=== PATIENT | female | born 1960 | race Caucasian/White ===

== ENCOUNTER 2017-09-18 19:07 | Observation (INO) | payer OTHER ==
[~2017-09-18] VITALS: Ht 154.9 cm; Wt 52.0 kg
[~2017-09-18 19:07] MED LIST: MULTTAB63; PERC5TAB12 PO; ZOFR4TAB3 SL
[2017-09-18 19:12] VITALS: BP 171/103; PULSE 111; RESP 16; TEMP 97.8; O2SAT 100
[2017-09-18] MEDS ORDERED: MULTTAB67 PO (19:12)
[2017-09-18] MEDS ORDERED: VENL75TA PO (19:12)
--- NOTE | 2017-09-18 19:48 | PD ---
HPI Chief Complaint: Chest Pain Time Seen by Provider: 19:38 Travel History International Travel<30 days: No Contact w/Intl Traveler<30days: No Traveled to known affect area: No History of Present Illness HPI 56-year-old female complaints of chest pain. Patient states that the chest pain started about 2 and half hours prior to arrival. Patient states that the chest pain is substernal heaviness pressure pain with radiation to left-sided neck. Patient states that she has nausea headache and shortness of breath with the chest pain. Patient was feeling her heart pounding. Patient denies any irregular heartbeat. Patient denies any diaphoresis. Patient denies history of CAD. Patient denies history hypertension, diabetes, hyperlipidemia. Patient is a non-smoker. Patient denies family history of heart disease. On a scale of 1-10 the pain is a 5. PFSH Past Medical History Depression: Yes Neurologic: Yes (CHRONIC ARM PAIN FROM DOG BITE) Influenza Vaccination: No ?: Not : 3 Para: 2 Miscarriage: 1 Past Surgical History Appendectomy: Yes Section: Yes Hysterectomy: Yes Social History Alcohol Use: Yes (SOCIAL) Tobacco Use: No Substance Use: No Allergies-Medications (Allergen,Severity, Reaction): Coded Allergies: Sulfa (Sulfonamide Antibiotics) (Unverified Allergy, Mild, N/V, 09/18/17) Reported Meds & Prescriptions Reported Meds & Active Scripts Active Reported Multiple Vitamin 1 Tab 1 Tab PO DAILY Effexor (Venlafaxine HCl) 75 Mg Tab 75 Mg PO Q12H Review of Systems General / Constitutional: No: Fever Eyes: No: Visual changes HENT: No: Headaches Cardiovascular: Positive: Chest Pain or Discomfort Respiratory: No: Shortness of Breath Gastrointestinal: No: Abdominal Pain Genitourinary: No: Dysuria Musculoskeletal: No: Pain Skin: No Rash Neurologic: No: Weakness Psychiatric: No: Depression Endocrine: No: Polydipsia Hematologic/Lymphatic: No: Easy Bruising Physical Exam Narrative GENERAL: Well-nourished, well-developed patient. SKIN: Focused skin assessment warm/dry. HEAD: Normocephalic. EYES: No scleral icterus. No injection or drainage. NECK: Supple, trachea midline. No JVD or lymphadenopathy. CARDIOVASCULAR: Regular rate and rhythm without murmurs, gallops, or rubs. RESPIRATORY: Breath sounds equal bilaterally. No accessory muscle use. GASTROINTESTINAL: Abdomen soft, non-tender, nondistended. MUSCULOSKELETAL: No cyanosis, or edema. BACK: Nontender without obvious deformity. No CVA tenderness. Neurologic exam normal. Data Data Last Documented VS Vital Signs Date Time Temp Pulse Resp B/P (MAP) Pulse Ox O2 Delivery O2 Flow Rate FiO2 09/18/17 19:12 97.8 111 16 171/103 (125) 100 Orders Orders Electrocardiogram (09/18/17 ) Electrocardiogram (09/18/17 19:43) Complete Blood Count With Diff (09/18/17 19:43) Comprehensive Metabolic Panel (09/18/17:43) Creatine Kinase (Cpk) (09/18/17:43) Troponin I (09/18/17:43) Prothrombin Time / Inr (Pt) (09/18/17 19:43) Act Partial Throm Time (Ptt) (09/18/17:43) Chest, Single Ap (09/18/17:43) Iv Access Insert/Monitor (09/18/17:43) Ecg Monitoring (09/18/17:43) Oximetry (09/18/17 19:43) Aspirin (Aspirin) (09/18/17 21:00) Potassium Chloride (Kcl) (09/18/17 21:00) Labs Laboratory Tests Test 09/18/17 19:57 White Blood Count 5.3 TH/MM3 Red Blood Count 4.47 MIL/MM3 Hemoglobin 14.1 GM/DL Hematocrit 40.6 % Mean Corpuscular Volume 90.8 FL Mean Corpuscular Hemoglobin 31.6 PG Mean Corpuscular Hemoglobin Concent 34.8 % Red Cell Distribution Width 13.7 % Platelet Count 296 TH/MM3 Mean Platelet Volume 6.9 FL Neutrophils (%) (Auto) 61.7 % Lymphocytes (%) (Auto) 28.3 % Monocytes (%) (Auto) 7.4 % Eosinophils (%) (Auto) 1.9 % Basophils (%) (Auto) 0.7 % Neutrophils # (Auto) 3.3 TH/MM3 Lymphocytes # (Auto) 1.5 TH/MM3 Monocytes # (Auto) 0.4 TH/MM3 Eosinophils # (Auto) 0.1 TH/MM3 Basophils # (Auto) 0.0 TH/MM3 CBC Comment DIFF FINAL Differential Comment Prothrombin Time 10.1 SEC Prothromb Time International Ratio 1.0 RATIO Activated Partial Thromboplast Time 24.0 SEC Blood Urea Nitrogen 11 MG/DL Creatinine 0.95 MG/DL Random Glucose 132 MG/DL Total Protein 7.7 GM/DL Albumin 4.1 GM/DL Calcium Level 9.7 MG/DL Alkaline Phosphatase 64 U/L Aspartate Amino Transf (AST/SGOT) 24 U/L Alanine Aminotransferase (ALT/SGPT) 22 U/L Total Bilirubin 0.3 MG/DL Sodium Level 140 MEQ/L Potassium Level 3.3 MEQ/L Chloride Level 105 MEQ/L Carbon Dioxide Level 25.2 MEQ/L Anion Gap 10 MEQ/L Estimat Glomerular Filtration Rate 61 ML/MIN Total Creatine Kinase 65 U/L Troponin I LESS THAN 0.02 NG/ML MDM Medical Decision Making Medical Screen Exam Complete: Yes Emergency Medical Condition: Yes Interpretation(s) EKG shows sinus rhythm nonspecific ST-T wave change. 2049 PM. CBC within normal limits. CMP within normal limits. Potassium 3.3. Cardiac enzymes are normal. Differential Diagnosis Differential diagnosis including angina, MN, PE, pneumothorax. Narrative Course 56-year-old female with chest pain. Aspirin 325 mg p.o. given. KCl 20 mEq p.o. given. Patient will be admitted to chest pain center. Diagnosis Primary Impression: Chest pain Qualified Codes: R07.9 - Chest pain, unspecified Additional Impression: Hypokalemia Admitting Information Admitting Physician Requests: Observation Rene Harris MD September 18, 2017 19:48
[2017-09-18 20:16] LABS: AUTOMATED NEUTROPHIL # 3.3 TH/MM3 (1.8-7.7); BASOPHIL % 0.7 % (0.0-2.0); EOSINOPHIL # 0.1 TH/MM3 (0-0.4); EOSINOPHIL % 1.9 % (0.0-4.0); HEMATOCRIT 40.6 % (35.0-46.0); HEMOGLOBIN 14.1 GM/DL (11.6-15.3); LYMPH % 28.3 % (9.0-44.0); LYMPHOCYTE # 1.5 TH/MM3 (1.0-4.8); MEAN CELL VOLUME 90.8 FL (80.0-100.0); MEAN CORPUSCULAR HEMOGLOBIN 31.6 PG (27.0-34.0); MEAN CORPUSCULAR HGB CONC 34.8 % (32.0-36.0); MEAN PLATELET VOLUME 6.9 FL (7.0-11.0); MONO % 7.4 % (0.0-8.0); MONOCYTE # 0.4 TH/MM3 (0-0.9); NEUT % 61.7 % (16.0-70.0); PLATELET COUNT 296 TH/MM3 (150-450); RED BLOOD COUNT 4.47 MIL/MM3 (4.00-5.30); RED CELL DISTRIBUTION WIDTH 13.7 % (11.6-17.2); WHITE BLOOD COUNT 5.3 TH/MM3 (4.0-11.0)
[2017-09-18 20:21] LABS: PROTHROMBIN TIME - PATIENT 10.1 SEC (9.8-11.6)
[2017-09-18 20:32] LABS: ALBUMIN 4.1 GM/DL (3.4-5.0); ALT (GPT) 22 U/L (10-53); AST (GOT) 24 U/L (15-37); BICARBONATE 25.2 MEQ/L (21.0-32.0); BLOOD UREA NITROGEN 11 MG/DL (7-18); CALCIUM 9.7 MG/DL (8.5-10.1); CHLORIDE 105 MEQ/L (98-107); CREATININE 0.95 MG/DL (0.50-1.00); GLOMERULAR FILTRATION RATE 61 ML/MIN (>89); GLUCOSE,RANDOM 132 MG/DL (74-106); SODIUM (NA) 140 MEQ/L (136-145)
[2017-09-18 20:35] LABS: ALKALINE PHOSPHATASE 64 U/L (45-117); TOTAL BILIRUBIN ADULT 0.3 MG/DL (0.2-1.0); TOTAL PROTEIN 7.7 GM/DL (6.4-8.2); TROPONIN I LESS THAN 0.02 NG/ML (0.02-0.05)
[2017-09-18 21:00] VITALS: BP 127/77; PULSE 96; RESP 18; O2SAT 97
[2017-09-18] MEDS ORDERED: POTASSIUM CHLORIDE 20 MEQ CONTROLLED RELEASE TAB PO ONE (21:00)
[2017-09-18] MEDS ORDERED: SODIUM CHLORIDE 0.9% FLUSH 10 ML FLUSH IV FLUSH PRN (21:00)
[2017-09-18] MEDS ORDERED: ONDANSETRON HCL 4 MG/2 ML VIAL IV PUSH PRN (21:00)
[2017-09-18] MEDS ORDERED: ASPIRIN 325 MG TAB PO ONE (21:00)
[2017-09-18] MEDS ORDERED: ACETAMINOPHEN 500 MG CPLT PO PRN (21:00)
--- NOTE | 2017-09-18 21:11 | RADRPT ---
EXAM DATE/TIME: 09/18/2017 19:56 [facility] COMPARISON: No previous studies available for comparison. INDICATIONS : Chest pain. MEDICAL HISTORY : Hypertension. Asthma. SURGICAL HISTORY : None. ENCOUNTER: Initial ACUITY: 1 day PAIN SCORE: 05/14 LOCATION: Left upper chest FINDINGS: A single view of the chest demonstrates the lungs to be symmetrically aerated without evidence of mas s, infiltrate or effusion. The cardiomediastinal contours are unremarkable. There is an old fracture deformity at the left posterior sixth rib. There is a levocurvature of the lower thoracic spine. CONCLUSION: No acute disease. Rosalino Klein MD on September 18, 2017 at 21:09 Board Certified Radiologist. This report was verified electronically.
[2017-09-18 21:27] VITALS: O2SAT 97
[2017-09-18] MEDS: SODIUM CHLORIDE 0.9% FLUSH 10 ML FLUSH IV FLUSH SCH (21:30)
[2017-09-18 21:39] VITALS: O2SAT 97
[2017-09-18 22:39] VITALS: BP 119/71; PULSE 81; RESP 16; TEMP 97.6; O2SAT 97
[2017-09-18 22:45] VITALS: PULSE 79
[2017-09-18 23:51] LABS: TROPONIN I LESS THAN 0.02 NG/ML (0.02-0.05)
[2017-09-19] VITALS: PULSE 74
[2017-09-19 02:37] LABS: TROPONIN I LESS THAN 0.02 NG/ML (0.02-0.05)
[2017-09-19 04:00] VITALS: BP 110/74; PULSE 68; PULSE 81; RESP 16; TEMP 97.9; O2SAT 97
[2017-09-19] MEDS ORDERED: NITROGLYCERIN 0.4 MG SL 25 TABS/BTL SL PRN (07:30)
[2017-09-19 08:00] VITALS: BP 116/70; PULSE 85; RESP 17; TEMP 98.1; O2SAT 93
[2017-09-19 08:06] VITALS: O2SAT 98
[2017-09-19] MEDS: SODIUM CHLORIDE 0.9% FLUSH 10 ML FLUSH IV FLUSH SCH (08:08)
--- NOTE | 2017-09-19 08:16 | HHI.HP ---
HPI Primary Care Physician Solo Her MD Chief Complaint Chest pain History of Present Illness 56 year old female without any significant past medical history presents to ER for further evaluation of nonexertional chest pain. Onset 5pm while getting her nails painted. Experienced "heart pounding" and "didn't feel well." Few minutes later developed left anterior chest pain. Characterized as pressure. Moderate in severity. Radiation to left side of neck. Associated symptoms of nausea, headache, dyspnea, and diaphoresis (described as intervals of hot and cold sweats). After leaving the nail salon, drove herself home and notified her . encouraged her to go to ER, however she refused but agreed to go to fire station near their home. Reports her heart rate 120s and bp 170/100s at fire station. Came to ER as directed by firemen. Duration of chest pain approx 2 hours. No known precipitating of relieving factors. Denies similar pain in the past. No current chest pain. Review of Systems General: No fatigue,weakness, fever, chills, or recent illness. Has been under general state of health. HEENT: No DELA CRUZ, no vision changes, no nasal congestion or drainage, no dysphasia CV: As stated above. No current chest pain or pressure. No further palpitations, dizziness improved. RESP: No SOB, cough, wheeze, or history of asthma GI: No nausea, vomiting, bowel changes, diarrhea, constipation, pain, distention , melena, or blood in the stool. : No dysuria, urgency, frequency EXT: No lower leg edema, no paraesthesias MS: No discomfort, injury, or change in ROM NEURO: No change in memory, difficulty with balance, LOC, motor/sensory deficits PSYCH: History of depression, no anxiety or suicidal ideation SKIN: No rashes, no concerning lesions Past Family Social History Allergies: Coded Allergies: Sulfa (Sulfonamide Antibiotics) (Unverified Allergy, Mild, N/V, 09/18/17) Past Medical History Depression Past Surgical History Appendectomy, hysterectomy Reported Medications Reported Meds & Active Scripts Active Reported Multiple Vitamin 1 Tab 1 Tab PO DAILY Effexor (Venlafaxine HCl) 75 Mg Tab 75 Mg PO Q12H Active Ordered Medications Current Medications Medications (Trade) Dose Ordered Sig/Ji Route Start Time Stop Time Status Last Admin (NS Flush) 2 ml UNSCH PRN IV FLUSH 5/17/18 21:00 (NS Flush) 2 ml BID IV FLUSH 09/18/17 21:00 09/19/17 08:08 (Tylenol) 500 mg Q4H PRN PO 09/18/17 21:00 (Zofran Inj) 4 mg Q6H PRN IV PUSH 09/18/17 21:00 (Nitrostat Sl) 0.4 mg Q5M PRN SL 09/19/17 07:30 (Aspirin) 325 mg DAILY PO 09/19/17 09:00 09/19/17 08:07 Family History Noncontributory for early onset cardiovascular disease. Social History No known diabetes, hypertension, hyperlipidemia, or coronary artery disease. Lifelong non-smoker. Denies any alcohol or illegal drug use. Endorses any active lifestyle, attending gym often until recent fracture of bilateral feet. Past cardiac testing None Physical Exam Vital Signs Vital Signs Date Time Temp Pulse Resp B/P (MAP) Pulse Ox O2 Delivery O2 Flow Rate FiO2 09/19/17 08:06 98 21 09/19/17 04:00 68 09/19/17 04:00 97.9 81 16 110/74 (86) 97 09/19/17 00:00 74 09/18/17 22:45 79 09/18/17 22:39 97.6 81 16 119/71 (87) 97 09/18/17 21:39 09/18/17 21:39 97 09/18/17 21:27 97 09/18/17 21:00 96 18 127/77 (94) 97 Room Air 09/18/17 19:12 97.8 111 16 171/103 (125) 100 Physical Exam GENERAL: Alert WN, WD, NAD, pleasant, female HEAD: NC, AT EYES: Sclera clear, conjunctiva without injection, pupils equal and round ENT: Mucous membranes pink and moist NECK: Supple, no masses, trachea midline CV: RRR, without murmur, rub, gallop, no JVD, S1-S2 no S3-S4. Chest wall nontender with palpation. RESP: Clear lungs throughout bilateral, no crackles, wheeze, rhonchi, symmetrical chest rise, nonlabored, able to speak in full sentences ABD: Soft, NT, ND, no masses, positive bowel tones EXT: Pulses +2x4, no dependent edema MS: Normal tone x4 extremities, no obvious deformities, full range of motion NEURO: CN II through CN XII grossly intact, motor strength 5/5 PSYCH: A+O x3, pleasant affect, appropriate speech, mood, insight and judgment SKIN: Normal turgor, normal texture, no lesions, no rashes, brisk cap refill, even hair distribution, heavily tattooed Laboratory Laboratory Tests Test 09/18/17 19:57 09/18/17 23:00 09/19/17 02:00 White Blood Count 5.3 Red Blood Count 4.47 Hemoglobin 14.1 Hematocrit 40.6 Mean Corpuscular Volume 90.8 Mean Corpuscular Hemoglobin 31.6 Mean Corpuscular Hemoglobin Concent 34.8 Red Cell Distribution Width 13.7 Platelet Count 296 Mean Platelet Volume 6.9 Neutrophils (%) (Auto) 61.7 Lymphocytes (%) (Auto) 28.3 Monocytes (%) (Auto) 7.4 Eosinophils (%) (Auto) 1.9 Basophils (%) (Auto) 0.7 Neutrophils # (Auto) 3.3 Lymphocytes # (Auto) 1.5 Monocytes # (Auto) 0.4 Eosinophils # (Auto) 0.1 Basophils # (Auto) 0.0 CBC Comment DIFF FINAL Differential Comment Prothrombin Time 10.1 Prothromb Time International Ratio 1.0 Activated Partial Thromboplast Time 24.0 Blood Urea Nitrogen 11 Creatinine 0.95 Random Glucose 132 Total Protein 7.7 Albumin 4.1 Calcium Level 9.7 Alkaline Phosphatase 64 Aspartate Amino Transf (AST/SGOT) 24 Alanine Aminotransferase (ALT/SGPT) 22 Total Bilirubin 0.3 Sodium Level 140 Potassium Level 3.3 Chloride Level 105 Carbon Dioxide Level 25.2 Anion Gap 10 Estimat Glomerular Filtration Rate 61 Total Creatine Kinase 65 61 54 Troponin I LESS THAN 0.02 LESS THAN 0.02 LESS THAN 0.02 Result Diagram: 09/18/17195609/18/171956 Imaging Last 48 hours Impressions Chest X-Ray 09/18/171942 Signed Impressions: Service Date/Time: September 19:56 - CONCLUSION: No acute disease. Rosalino Klein MD Course EKG NSR, normal axis, no st t segment changes Caprini VTE Risk Assessment Caprini VTE Risk Assessment: No/Low Risk (score <= 1) Caprini Risk Assessment Model Point Value = 1 Point Value = 2 Point Value = 3 Point Value = 5 Age 41-60 Minor surgery BMI > 25 kg/m2 Swollen legs Varicose veins or History of unexplained or recurrent spontaneous Oral contraceptives or hormone replacement Sepsis (< 1 month) Serious lung disease, including pneumonia (< 1 month) Abnormal pulmonary function Acute myocardial infarction Congestive heart failure (< 1 month) History of inflammatory bowel disease Medical patient at bed rest Age 61-74 Arthroscopic surgery Major open surgery (> 45 min) Laparoscopic surgery (> 45 min) Malignancy Confined to bed (> 72 hours) Immobilizing plaster cast Central venous access Age >= 75 History of VTE Family history of VTE Factor V Leiden Prothrombin [id number] Lupus anticoagulant Anticardiolipin antibodies Elevated serum homocysteine Heparin-induced thrombocytopenia Other congenital or acquired thrombophilia Stroke (< 1 month) Elective arthroplasty Hip, pelvis, or leg fracture Acute spinal cord injury (< 1 month) Prophylaxis Regimen Total Risk Factor Score Risk Level Prophylaxis Regimen 0-1 Low Early ambulation 2 Moderate Order ONE of the following: *Sequential Compression Device (SCD) *Heparin 5000 units SQ BID 3-4 Higher Order ONE of the following medications: *Heparin 5000 units SQ TID *Enoxaparin/Lovenox 40 mg SQ daily (WT < 150 kg, CrCl > 30 mL/min) *Enoxaparin/Lovenox 30 mg SQ daily (WT < 150 kg, CrCl > 10-29 mL/min) *Enoxaparin/Lovenox 30 mg SQ BID (WT < 150 kg, CrCl > 30 mL/min) AND/OR *Sequential Compression Device (SCD) 5 or more Highest Order ONE of the following medications: *Heparin 5000 units SQ TID (Preferred with Epidurals) *Enoxaparin/Lovenox 40 mg SQ daily (WT < 150 kg, CrCl > 30 mL/min) *Enoxaparin/Lovenox 30 mg SQ daily (WT < 150 kg, CrCl > 10-29 mL/min) *Enoxaparin/Lovenox 30 mg SQ BID (WT < 150 kg, CrCl > 30 mL/min) AND *Sequential Compression Device (SCD) Assessment and Plan Assessment and Plan #1 Chest pain-admitted to chest pain center. ACS ruled out with 3 sets of EKGs, cardiac enzymes, and monitored on telemetry overnight. Seen and evaluated by Dr. Vidal. Due to recent bilateral feet fractures, proceed with Lexiscan this morning. If Lexiscan unremarkable, plan to discharge home with follow up with PCP. Verbalized understanding and agreeable to plan of care. #2 History of depression-continue Shelby Gan September 19, 2017 08:16
[2017-09-19] MEDS ORDERED: ASPIRIN 325 MG TAB PO SCH (09:00)
[2017-09-19] MEDS ORDERED: REGADENOSON INJ 0.4 MG/5 ML SYR ONE (10:08)
[2017-09-19 12:00] VITALS: BP 113/71; PULSE 72; RESP 18; TEMP 96.8; O2SAT 98
--- NOTE | 2017-09-19 12:06 | RADRPT ---
EXAM DATE/TIME: 09/19/2017 09:30 [facility] COMPARISON: No previous studies available for comparison. INDICATIONS : Mid chest pain for one day. Angina. DOSE: 27.3 mCi Tc99m Myoview at stress. 8.7 mCi Tc99m Myoview at rest. 0.4 mg Lexiscan STRESS SYMPTOMS: None. EJECTION FRACTION: > 70% MEDICAL HISTORY : Asthma. SURGICAL HISTORY : Hysterectomy. section. Appendectomy. ENCOUNTER: Initial ACUITY: 1 day PAIN SCALE: 5/10 LOCATION: Midsternal chest TECHNIQUE: The patient underwent pharmacologic stress with infusion of prescribed dose. Continuous ECG tracing was monitored during stress. Gated SPECT imaging was performed after stress and conventional SPECT i maging was performed at rest. The examination was performed on a SPECT/CT scanner, both attenuation and non-corrected datasets were reviewed. FINDINGS: DISTRIBUTION: The maximum perfused segment at stress is in the inferior wall. PERFUSION STUDY: The pattern of perfusion at stress is within normal limits. GATED STUDY: There is intact wall motion and thickening without hypokinetic or dyskinetic segments. CONCLUSION: 1. No reversible perfusion defects to suggest ischemia 2. Normal ejection fraction. RISK CATEGORY: Low (<1% Annual Mortality Rate) Portillo Gray MD on September 19, 2017 at 12:03 Board Certified Radiologist. This report was verified electronically.
--- NOTE | 2017-09-19 12:26 | HHI.DCPOC ---
Discharge Care Plan Diagnosis: (1) Atypical chest pain (2) Hypokalemia Goals to Promote Your Health * To prevent worsening of your condition and complications * To maintain your health at the optimal level Directions to Meet Your Goals Take your medications as prescribed Follow your dietary instruction Follow activity as directed Keep your appointments as scheduled Take your immunizations and boosters as scheduled If your symptoms worsen call your PCP, if no PCP go to Urgent Care Center or Emergency Room Smoking is Dangerous to Your Health. Avoid second hand smoke Call the 24-hour hour crisis hotline for domestic abuse at [facility] Karimi September 19, 2017 12:26
--- NOTE | 2017-09-19 14:28 | TR ---
Date Performed: 09/19/2017 Time Performed: 10:09:28 DOCTOR: Yaa Vidal DRUG LIST: CLINICAL HISTORY: REASON FOR TEST: REASON FOR ENDING: OBSERVATION: CONCLUSION: Lexiscan stress test was performed under standard four minute protocol. Radionuclid e was injected one minute prior to ending the test. No electrocardiographic abormalities were present to suggest ischemia. Nuclear imaging and interpretation are pending. COMMENTS:
--- NOTE | 2017-09-19 14:36 | EKG ---
Date Performed: 09/18/2017 Time Performed: 22:53:55 PTAGE: 56 years EKG: Sinus rhythm POSSIBLE LEFT ATRIAL ENLARGEMENT ANTEROSEPTAL MYOCARDIAL INFARCTION ABNORMAL ECG Since PREVIOUS TRACING , no significant change noted PREVIOUS TRACIN09/18/2017 19.19 DOCTOR: Yaa Vidal Interpretating Date/Time 09/19/2017 14:33:44
--- NOTE | 2017-09-19 14:36 | EKG ---
Date Performed: 09/19/2017 Time Performed: 01:35:52 PTAGE: 56 years EKG: Sinus rhythm POSSIBLE LEFT ATRIAL ENLARGEMENT ANTEROSEPTAL MYOCARDIAL INFARCTION ABNORMAL ECG Since PREVIOUS TRACING , no significant change noted PREVIOUS TRACIN09/18/2017 22.53 DOCTOR: Yaa Vidal Interpretating Date/Time 09/19/2017 14:33:15
--- NOTE | 2017-09-19 14:38 | EKG ---
Date Performed: 09/18/2017 Time Performed: 19:19:13 PTAGE: 56 years EKG: Sinus rhythm POSSIBLE RIGHT ATRIAL ENLARGEMENT LEFT ATRIAL ENLARGEMENT SEPTAL MYOCARDIAL INFARCTION ABNORMAL ECG Since PREVIOUS TRACING , no significant change noted PREVIOUS TRACIN12/11/2011 09.37 DOCTOR: Yaa Vidal Interpretating Date/Time 09/19/2017 14:34:22
== END 2017-09-19 14:45 | disposition home or self-care (01) ==
LOC: NEPC 19:07 → NEDA 20:58 → NEPGCP 22:21
PROVIDERS: ADMIT Internal Medicine Interventional Cardiology; ATTEND Internal Medicine Interventional Cardiology
DX: R07.89 Other chest pain (principal); E87.6 Hypokalemia; F32.9 Major depressive disorder, single episode, unspecified; R51 Headache; R11.0 Nausea; R06.02 Shortness of breath; M79.603 Pain in arm, unspecified; J45.909 Unspecified asthma, uncomplicated; I20.9 Angina pectoris, unspecified; R94.31 Abnormal electrocardiogram [ECG] [EKG]
CPT/HCPCS: 71045; 78452; 80053; 82550; 84484; 85025; 85610; 85730; 93005; 93017; 99285; A9502; G0378; J2785